=== PATIENT | male | born 1970 | race Caucasian/White ===

== ENCOUNTER → 2017-03-14 | Outpatient (CLI) | payer OTHER ==
--- NOTE | 2017-03-14 22:31 | CONS ---
DATE OF CONSULTATION: CHIEF COMPLAINT: Sleep apnea. PCP: Dr. Patrick Byrd 46-year-old male patient coming in with snoring and feeling tired during the day. The patient has not gained any weight recently. He goes to bed around 9:00 p.m., wakes up at 6:00 a.m. in the morning. This has been a chronic problem including this snoring and witnessed apneas described by his . No major hypersomnia or sleepiness during the day. His Barnhart score is at 8. No falling asleep while driving or performing daily activities. He works at a [employer] and he is able to function without any major difficulties or limitation. PAST MEDICAL HISTORY: Negative. Surgical history is negative. ALLERGIES: Not known. FAMILY HISTORY: Strong family history for coronary artery disease including father and sister. Medications are none. REVIEW OF SYSTEMS: Twelve-point review of systems was done. Positive findings all mentioned above in the history of present illness. BP is 135/75, pulse 96, respirations 16, temperature 98.3, saturation 98% on room air. Weight is 196, height is 5 feet 8 inches. Neck size 15-1/2 inches. GENERAL APPEARANCE: Calm, comfortable. HEENT: Short neck, Mallampati Class II. There is no goiter, neck masses. LUNGS: Clear to auscultation. HEART: Sounds are regular rate and rhythm. Normal S1, S2. No S3, no S4 no murmurs. ABDOMEN: Soft, nontender. No organomegaly. EXTREMITIES: No edema. No cyanosis or clubbing. IMPRESSION: 1. Obstructive sleep apnea, currently under investigation. Overall suspicion is low. 2. Strong family history for coronary artery disease. 3. Loud snoring and apneas. PLAN: 1. PSG. 2. Weight loss. 3. Implement good sleep hygiene measures. 4. Will review the PSG and make further recommendations based on the results.
== END | disposition home or self-care (01) ==
LOC: SLEEP 16:47
PROVIDERS: ATTEND Internal Medicine Critical Care Medicine
DX: G47.30 Sleep apnea, unspecified (principal); R06.83 Snoring; Z82.49 Family history of ischemic heart disease and other diseases of the circulatory system
CPT/HCPCS: 99211

== ENCOUNTER → 2018-09-25 | Outpatient (CLI) | payer BC ==
--- NOTE | 2018-09-25 10:39 | CT ---
EXAMINATION TYPE: CT soft tissue neck w con DATE OF EXAM: 09/25/2018 HISTORY: Cellulitis L ear, Sialoadenitis per order. Parotid gland abnormality per patient. COMPARISON: NONE CT DLP: 375.80 mGycm. Automated Exposure Control for Dose Reduction was Utilized. TECHNIQUE: CT scan of the neck is performed with IV Contrast, patient injected with 100 ml mL of Iso luis 300, axial images are obtained, coronal and sagittal reformatted images are reviewed. FINDINGS: Airway: There is incidental prominence of the oropharyngeal and hypopharyngeal airways without suspic ious mass or mucosal lesion. There is mild emphysematous change in lung apices with azygos lobe/fissu re present. Thyroid gland is small in size. Parotid/submandibular glands: Subcentimeter round lesion left parotid gland axial image 68 favors sergio ign intraparotid lymph node. Similar scattered adjacent lesions are seen bilaterally. No suspicious f luid collection or inflammatory change and parotid or submandibular glands is identified. Carotid/Vascular Structures: No significant plaque or stenosis at carotid bulb level bilaterally. The re is codominant vertebral basilar system patent to basilar junction. Osseous Structures: No suspicious abnormality is seen. Other: Nasal septum is deviated to right of midline. Mastoid air cells show no suspicious opacificati on. There is symmetric mild mucosal thickening of the external auditory canals bilaterally. Middle ea r ossicles show no suspicious surrounding opacity. No greater than 1 cm neck adenopathy is seen. Scat tered subcentimeter lymph nodes are present bilaterally. IMPRESSION: No suspicious masses or inflammatory change identified.
== END | disposition home or self-care (01) ==
LOC: RADCTMAIN 07:04
PROVIDERS: ATTEND Family Medicine
DX: K11.20 Sialoadenitis, unspecified (principal); H60.12 Cellulitis of left external ear
CPT/HCPCS: 70491; Q9967

== ENCOUNTER → 2019-01-02 | Outpatient (CLI) | payer BC ==
--- NOTE | 2019-01-02 14:13 | CT ---
EXAMINATION TYPE: CT abdomen pelvis w con DATE OF EXAM: 01/02/2019 COMPARISON: None INDICATION: LUQ and LLQ pain DLP: 1446 mGycm, Automated exposure control for dose reduction was used. CONTRAST: 100 ml mL of Isovue 300. Study performed with Oral Contrast TECHNIQUE: Axial images were obtained from above the diaphragm to the pubic rami in the axial plane a t 5 mm thick sections. Reconstructed images are reviewed on the computer in the coronal plane. FINDINGS: Limited CT sections are obtained the lung bases. The lung bases are clear. CT ABDOMEN: Liver: Normal Spleen: Normal Pancreas: Normal Adrenal glands: The adrenal glands are normal. Gallbladder: Normal Kidneys: No masses are evident. No hydronephrosis is present. No cysts are present. Delayed images were obtained through the kidneys, which remain unremarkable. Aorta: Vascular calcification is within the aorta. Inferior vena cava: Normal. CT PELVIS: Loops of bowel within the abdomen and pelvis are normal. There are loops of bowel lacking oral co ntrast or with incomplete distention limiting their evaluation. Appendix: Normal as visualized. Urinary bladder: Normal. Genitourinary structures: Prostate calcification is present. Osseous structures: No suspicious lytic or sclerotic lesions. IMPRESSIONS: 1. Unremarkable CT abdomen and pelvis.
== END | disposition home or self-care (01) ==
LOC: RADCTMAIN 08:56
PROVIDERS: ATTEND Family Medicine
DX: R10.12 Left upper quadrant pain (principal); R10.32 Left lower quadrant pain
CPT/HCPCS: 74177; Q9967

== ENCOUNTER → 2020-09-08 | Outpatient (CLI) | payer BC | END | disposition home or self-care (01) | LOC: LABWHC1 15:06 | PROVIDERS: ATTEND Family Medicine | DX: Z03.818 Encounter for observation for suspected exposure to other biological agents ruled out (principal) | CPT/HCPCS: U0003; C9803 ==